=== PATIENT | female | born 1965 | race Caucasian/White ===

== ENCOUNTER 2020-09-17 14:07 | Outpatient (CLI) | payer BC, OTHER ==
[2020-09-18 02:35] LABS: SARS-CoV-2 PCR by NAA Not Detected (NotDetected)
== END 2020-09-17 14:08 | disposition home or self-care (01) ==
LOC: CSHLAB 14:07
PROVIDERS: ATTEND Internal Medicine Critical Care Medicine
DX: Z20.822 Contact with and (suspected) exposure to COVID-19 (principal); D86.9 Sarcoidosis, unspecified
CPT/HCPCS: 87635; U0003; U0005

== ENCOUNTER 2021-10-15 14:58 | Outpatient (CLI) | payer OTHER ==
[2021-10-16 16:11] LABS: SARS-CoV-2 PCR by NAA Not Detected (NotDetected)
== END 2021-10-15 14:59 | disposition home or self-care (01) ==
LOC: CSHLAB 14:58
PROVIDERS: ATTEND Internal Medicine Critical Care Medicine
DX: Z20.822 Contact with and (suspected) exposure to COVID-19 (principal)
CPT/HCPCS: U0003; U0005

== ENCOUNTER 2021-10-19 14:50 | Outpatient (CLI) | payer OTHER | END 2021-10-19 14:51 | disposition home or self-care (01) | LOC: CSHCP 14:50 | PROVIDERS: ATTEND Internal Medicine Critical Care Medicine | DX: D86.0 Sarcoidosis of lung (principal) | CPT/HCPCS: 94060; 94726; 94729; 94760 ==